=== PATIENT | female | born 1960 ===

== ENCOUNTER → 2025-03-25 | Emergency (ER) | payer OTHER ==
[~2025-03-25] VITALS: Ht 152.4 cm; Wt 68.0 kg
[~2025-03-25] MED LIST: CHOLESTYRAMINE/ASPARTAME LIGHT 4 G/PKT PACKET PO ONE; DIPHENHYDRAMINE HCL 50 MG/ML VIAL 1ML IM ONE; LORazepam 2 MG/ML VIAL IM ONE
== END | disposition home or self-care (01) ==
LOC: ER 10:28
DX: G25.2 Other specified forms of tremor (principal); R19.7 Diarrhea, unspecified; F41.0 Panic disorder [episodic paroxysmal anxiety]